=== PATIENT | male | born 1970 | race Caucasian/White ===

== ENCOUNTER 2021-06-04 18:55 | Inpatient (IN) | payer MEDICAID ==
[~2021-06-04] VITALS: Ht 172.7 cm; Wt 83.0 kg
[2021-06-04 19:00] VITALS: BP 120/82
[2021-06-04 20:00] VITALS: BP 120/82
[2021-06-04] MEDS ORDERED: NON FORMULARY PATIENT HOME MED XX SCH (21:00)
[2021-06-04] MEDS ORDERED: ENOXAPARIN 40MG/0.4ML SYR SUBCUT SCH (21:00)
[2021-06-04] MEDS ORDERED: DEXTROSE 50% WATER 50ML SYRINGE IV PRN (21:30)
[2021-06-04] MEDS ORDERED: SENNOSIDES/DOCUSATE SOD 8.6/50MG TABLET PO PRN (21:30)
[2021-06-04] MEDS ORDERED: ONDANSETRON HCL 4MG TABLET PO PRN (22:00)
[2021-06-04] MEDS ORDERED: SODIUM CHLORIDE 0.45% 1,000 ML IV SCH (22:00)
[2021-06-04] MEDS ORDERED: NALOXONE HCL 0.4MG/ML VIAL IV PRN (22:15)
[2021-06-04] MEDS ORDERED: SODIUM CHLORIDE 0.9% INJ 3ML FLUSH IVF PRN (23:00)
[2021-06-04] MEDS: ASCORBIC ACID 500 MG TABLET PEG SCH (23:53)
[2021-06-04] MEDS: GUAIFENESIN 200MG/10ML SUGAR FREE UDC PO SCH (23:53)
[2021-06-04] MEDS: ACETAMINOPHEN 325MG TABLET PO PRN (23:57)
[2021-06-05] MEDS: INSULIN GLARGINE UD 100 UNITS/ML SYR SUBCUT SCH ×3 (00:05→21:12)
[2021-06-05] MEDS ORDERED: SODIUM CHLORIDE 0.9% INJ 3ML FLUSH IVF ONE (06:00)
[2021-06-05] MEDS: GUAIFENESIN 200MG/10ML SUGAR FREE UDC PO SCH ×3 (06:00→21:05)
[2021-06-05] MEDS: HYDRALAZINE HCL 25MG TABLET PO SCH ×5 (06:00→23:03)
[2021-06-05] MEDS: INSULIN LISPRO 100 UNITS/ML SUBCUT SCH ×7 (06:28→21:11)
[2021-06-05] MEDS: BLOOD SUGAR DIAGNOSTIC STRIP TEST SCH ×4 (06:28→21:01)
[2021-06-05] MEDS: PANTOPRAZOLE 40MG DR TABLET PO SCH (06:29)
[2021-06-05] MEDS: OXYCODONE HCL 5MG TABLET PO PRN ×2 (06:30→09:58)
[2021-06-05 08:23] VITALS: BP 139/84
[2021-06-05 08:44] LABS: PROTHROMBIN TIME 11.1 sec (9.6-11.0)
[2021-06-05 08:50] LABS: CHLORIDE 110 mEq/L (98-107)
[2021-06-05 08:54] LABS: BASOPHILS % 0.7 % (0.0-2.0); EOSINOPHILS % 3.5 % (0.0-5.0); HEMATOCRIT. 34.7 % (42.0-52.0); HEMOGLOBIN. 11.3 g/dL (14.0-18.0); LYMPHOCYTES % 27.6 % (20.0-50.0); MEAN CORPUSCULAR HEMOGLOBIN 28.2 pg (28.0-32.0); MEAN CORPUSCULAR VOLUME 86.8 fL (80.0-94.0); MONOCYTES % 11.2 % (2.0-8.0); PLATELET 347 x1000/uL (130-400); RED CELL DISTRIBUTION WIDTH 14.7 % (11.6-14.6)
[2021-06-05] MEDS: POLYETHYLENE GLYCOL 3350 (17GM) 1 DOSE PACK PO SCH (09:00)
[2021-06-05] MEDS ORDERED: CHOLECALCIFEROL (D3) 1000 UNIT TABLET PO SCH ×2 (09:00)
[2021-06-05] MEDS: ASCORBIC ACID 500 MG TABLET PEG SCH ×2 (09:57→21:05)
[2021-06-05] MEDS: LINAGLIPTIN 5MG TABLET PO SCH (09:57)
[2021-06-05] MEDS: MULTIVITAMINS,THER W-MINERALS TABLET PO SCH (09:57)
[2021-06-05] MEDS: QUETIAPINE FUMARATE 25MG TABLET PO SCH (09:57)
[2021-06-05] MEDS: TAMSULOSIN HCL 0.4MG SR CAPSULE PO SCH (09:58)
[2021-06-05] MEDS: ENOXAPARIN 100MG/ML SYR SUBCUT SCH ×2 (09:58→21:05)
[2021-06-05] MEDS: METFORMIN HCL 500MG TABLET PO SCH ×2 (10:48→17:43)
[2021-06-05] MEDS ORDERED: DEXTROSE 50% WATER 50ML SYRINGE IV PRN (19:15)
[2021-06-05 20:00] VITALS: BP 122/83
[2021-06-05] MEDS ORDERED: BLOOD SUGAR DIAGNOSTIC STRIP TEST SCH (21:00)
[2021-06-05] MEDS: IPRATROPIUM/ALBUTEROL 0.5-3(2.5)MG/3ML NEB HHN SCH (21:14)
[2021-06-05] MEDS: ZOLPIDEM TARTRATE 5MG TABLET PO PRN (23:03)
[2021-06-06] MEDS: IPRATROPIUM/ALBUTEROL 0.5-3(2.5)MG/3ML NEB HHN SCH ×7 (01:20→23:58)
[2021-06-06] MEDS: GUAIFENESIN 200MG/10ML SUGAR FREE UDC PO SCH ×3 (06:00→21:18)
[2021-06-06] MEDS: PANTOPRAZOLE 40MG DR TABLET PO SCH (06:13)
[2021-06-06] MEDS: HYDRALAZINE HCL 25MG TABLET PO SCH ×4 (06:13→23:07)
[2021-06-06] MEDS: BLOOD SUGAR DIAGNOSTIC STRIP TEST SCH ×4 (06:16→21:14)
[2021-06-06] MEDS: INSULIN LISPRO 100 UNITS/ML SUBCUT SCH ×7 (06:17→21:00)
[2021-06-06 08:12] VITALS: BP 119/71
[2021-06-06] MEDS: MULTIVITAMINS,THER W-MINERALS TABLET PO SCH (08:44)
[2021-06-06] MEDS: ASCORBIC ACID 500 MG TABLET PEG SCH ×2 (08:44→20:23)
[2021-06-06] MEDS: QUETIAPINE FUMARATE 25MG TABLET PO SCH (08:44)
[2021-06-06] MEDS: TAMSULOSIN HCL 0.4MG SR CAPSULE PO SCH (08:44)
[2021-06-06] MEDS: METFORMIN HCL 500MG TABLET PO SCH ×2 (08:45→16:50)
[2021-06-06] MEDS: POLYETHYLENE GLYCOL 3350 (17GM) 1 DOSE PACK PO SCH (08:45)
[2021-06-06] MEDS: LINAGLIPTIN 5MG TABLET PO SCH (08:45)
[2021-06-06] MEDS ORDERED: ERGOCALCIFEROL 50000UNITS CAPSULE PO SCH (09:00)
[2021-06-06] MEDS: OXYCODONE HCL 5MG TABLET PO PRN ×2 (10:45→20:23)
[2021-06-06] MEDS: ENOXAPARIN 100MG/ML SYR SUBCUT SCH ×2 (10:47→20:23)
[2021-06-06] MEDS: INSULIN GLARGINE UD 100 UNITS/ML SYR SUBCUT SCH ×2 (10:48→21:20)
[2021-06-06 20:00] VITALS: BP 122/73
[2021-06-07] MEDS: ACETAMINOPHEN 325MG TABLET PO PRN (00:03)
[2021-06-07] MEDS: IPRATROPIUM/ALBUTEROL 0.5-3(2.5)MG/3ML NEB HHN SCH ×5 (04:00→20:40)
[2021-06-07] MEDS: GUAIFENESIN 200MG/10ML SUGAR FREE UDC PO SCH ×3 (06:00→21:10)
[2021-06-07] MEDS: HYDRALAZINE HCL 25MG TABLET PO SCH ×4 (06:00→23:16)
[2021-06-07] MEDS: OXYCODONE HCL 5MG TABLET PO PRN ×2 (06:18→13:46)
[2021-06-07] MEDS: PANTOPRAZOLE 40MG DR TABLET PO SCH (06:18)
[2021-06-07] MEDS: BLOOD SUGAR DIAGNOSTIC STRIP TEST SCH ×4 (06:23→21:09)
[2021-06-07] MEDS: INSULIN LISPRO 100 UNITS/ML SUBCUT SCH ×7 (06:24→21:00)
[2021-06-07 08:00] VITALS: BP 110/74
[2021-06-07] MEDS: QUETIAPINE FUMARATE 25MG TABLET PO SCH (08:53)
[2021-06-07] MEDS: ASCORBIC ACID 500 MG TABLET PEG SCH ×2 (08:53→21:11)
[2021-06-07] MEDS: LINAGLIPTIN 5MG TABLET PO SCH (08:53)
[2021-06-07] MEDS: METFORMIN HCL 500MG TABLET PO SCH ×2 (08:53→17:20)
[2021-06-07] MEDS: MULTIVITAMINS,THER W-MINERALS TABLET PO SCH (08:53)
[2021-06-07] MEDS: TAMSULOSIN HCL 0.4MG SR CAPSULE PO SCH (08:54)
[2021-06-07] MEDS: ENOXAPARIN 100MG/ML SYR SUBCUT SCH ×2 (08:54→21:11)
[2021-06-07] MEDS: POLYETHYLENE GLYCOL 3350 (17GM) 1 DOSE PACK PO SCH (09:00)
[2021-06-07] MEDS: INSULIN GLARGINE UD 100 UNITS/ML SYR SUBCUT SCH ×2 (09:04→21:10)
[2021-06-07 20:00] VITALS: BP 119/75
[2021-06-08] MEDS: HYDRALAZINE HCL 25MG TABLET PO SCH ×3 (06:13→17:58)
[2021-06-08] MEDS: FAMOTIDINE 20MG TABLET PO SCH ×2 (06:14→17:58)
[2021-06-08] MEDS: GUAIFENESIN 200MG/10ML SUGAR FREE UDC PO SCH ×3 (06:14→21:01)
[2021-06-08] MEDS: BLOOD SUGAR DIAGNOSTIC STRIP TEST SCH ×4 (06:22→20:37)
[2021-06-08] MEDS: INSULIN LISPRO 100 UNITS/ML SUBCUT SCH ×8 (06:23→20:37)
[2021-06-08 08:00] VITALS: BP 127/81
[2021-06-08] MEDS: TAMSULOSIN HCL 0.4MG SR CAPSULE PO SCH (09:28)
[2021-06-08] MEDS: QUETIAPINE FUMARATE 25MG TABLET PO SCH (09:28)
[2021-06-08] MEDS: LINAGLIPTIN 5MG TABLET PO SCH (09:28)
[2021-06-08] MEDS: MULTIVITAMINS,THER W-MINERALS TABLET PO SCH (09:28)
[2021-06-08] MEDS: METFORMIN HCL 500MG TABLET PO SCH ×2 (09:28→17:58)
[2021-06-08] MEDS: POLYETHYLENE GLYCOL 3350 (17GM) 1 DOSE PACK PO SCH (09:29)
[2021-06-08] MEDS: ENOXAPARIN 100MG/ML SYR SUBCUT SCH ×2 (09:29→20:38)
[2021-06-08] MEDS: INSULIN GLARGINE UD 100 UNITS/ML SYR SUBCUT SCH ×2 (09:33→21:04)
[2021-06-08] MEDS: OXYCODONE HCL 5MG TABLET PO PRN (11:56)
[2021-06-08] MEDS: ASCORBIC ACID 500 MG TABLET PEG SCH ×2 (11:56→20:37)
[2021-06-08 17:45] VITALS: BP 121/85
[2021-06-08 20:00] VITALS: BP 106/65
[2021-06-08] MEDS: ZOLPIDEM TARTRATE 5MG TABLET PO PRN (20:37)
[2021-06-09] MEDS: HYDRALAZINE HCL 25MG TABLET PO SCH ×4 (00:38→17:27)
[2021-06-09] MEDS: FAMOTIDINE 20MG TABLET PO SCH ×2 (06:01→17:27)
[2021-06-09] MEDS: BLOOD SUGAR DIAGNOSTIC STRIP TEST SCH ×4 (06:01→21:47)
[2021-06-09] MEDS: GUAIFENESIN 200MG/10ML SUGAR FREE UDC PO SCH ×3 (06:02→21:49)
[2021-06-09] MEDS: INSULIN LISPRO 100 UNITS/ML SUBCUT SCH ×7 (06:41→21:00)
[2021-06-09] MEDS: IPRATROPIUM/ALBUTEROL 0.5-3(2.5)MG/3ML NEB HHN SCH ×3 (07:19→15:54)
[2021-06-09 08:00] VITALS: BP 132/87
[2021-06-09] MEDS: POLYETHYLENE GLYCOL 3350 (17GM) 1 DOSE PACK PO SCH (09:18)
[2021-06-09] MEDS: ASCORBIC ACID 500 MG TABLET PEG SCH ×2 (09:18→21:48)
[2021-06-09] MEDS: TAMSULOSIN HCL 0.4MG SR CAPSULE PO SCH (09:18)
[2021-06-09] MEDS: LINAGLIPTIN 5MG TABLET PO SCH (09:18)
[2021-06-09] MEDS: QUETIAPINE FUMARATE 25MG TABLET PO SCH (09:18)
[2021-06-09] MEDS: METFORMIN HCL 500MG TABLET PO SCH ×2 (09:18→17:26)
[2021-06-09] MEDS: ENOXAPARIN 100MG/ML SYR SUBCUT SCH ×2 (09:18→21:48)
[2021-06-09] MEDS: MULTIVITAMINS,THER W-MINERALS TABLET PO SCH (09:18)
[2021-06-09] MEDS: INSULIN GLARGINE UD 100 UNITS/ML SYR SUBCUT SCH ×2 (09:26→21:53)
[2021-06-09 12:00] VITALS: BP 128/90
[2021-06-09 18:00] VITALS: BP 122/85
[2021-06-09] MEDS: OXYCODONE HCL 5MG TABLET PO PRN (18:16)
[2021-06-09 20:00] VITALS: BP 125/82
[2021-06-09] MEDS: ZOLPIDEM TARTRATE 5MG TABLET PO PRN (21:48)
[2021-06-10] MEDS: GUAIFENESIN 200MG/10ML SUGAR FREE UDC PO SCH ×3 (05:40→21:59)
[2021-06-10] MEDS: BLOOD SUGAR DIAGNOSTIC STRIP TEST SCH ×4 (05:40→21:58)
[2021-06-10] MEDS: HYDRALAZINE HCL 25MG TABLET PO SCH ×5 (05:41→22:07)
[2021-06-10] MEDS: FAMOTIDINE 20MG TABLET PO SCH ×2 (06:17→17:59)
[2021-06-10] MEDS: IPRATROPIUM/ALBUTEROL 0.5-3(2.5)MG/3ML NEB HHN SCH ×3 (08:00→16:40)
[2021-06-10] MEDS: INSULIN LISPRO 100 UNITS/ML SUBCUT SCH ×7 (08:53→21:00)
[2021-06-10] MEDS: METFORMIN HCL 500MG TABLET PO SCH ×2 (08:54→17:59)
[2021-06-10] MEDS: ASCORBIC ACID 500 MG TABLET PEG SCH ×2 (08:54→22:06)
[2021-06-10] MEDS: ENOXAPARIN 100MG/ML SYR SUBCUT SCH (08:54)
[2021-06-10] MEDS: QUETIAPINE FUMARATE 25MG TABLET PO SCH (08:54)
[2021-06-10] MEDS: POLYETHYLENE GLYCOL 3350 (17GM) 1 DOSE PACK PO SCH (08:54)
[2021-06-10] MEDS: LINAGLIPTIN 5MG TABLET PO SCH (08:55)
[2021-06-10] MEDS: MULTIVITAMINS,THER W-MINERALS TABLET PO SCH (08:55)
[2021-06-10] MEDS: TAMSULOSIN HCL 0.4MG SR CAPSULE PO SCH (08:56)
[2021-06-10 09:05] VITALS: BP 111/71
[2021-06-10] MEDS: OXYCODONE HCL 5MG TABLET PO PRN ×2 (11:59→23:39)
[2021-06-10] MEDS: INSULIN GLARGINE UD 100 UNITS/ML SYR SUBCUT SCH ×2 (12:08→21:59)
[2021-06-10] MEDS: APIXABAN 5 MG TABLET PO SCH (17:59)
[2021-06-10 20:00] VITALS: BP 135/77
[2021-06-10] MEDS: ACETAMINOPHEN 325MG TABLET PO PRN (22:07)
[2021-06-11] MEDS: GUAIFENESIN 200MG/10ML SUGAR FREE UDC PO SCH ×3 (05:56→22:00)
[2021-06-11] MEDS: BLOOD SUGAR DIAGNOSTIC STRIP TEST SCH ×4 (05:56→21:00)
[2021-06-11] MEDS: FAMOTIDINE 20MG TABLET PO SCH ×2 (05:57→17:56)
[2021-06-11] MEDS: HYDRALAZINE HCL 25MG TABLET PO SCH ×4 (05:58→22:28)
[2021-06-11] MEDS: INSULIN LISPRO 100 UNITS/ML SUBCUT SCH ×8 (07:00→21:00)
[2021-06-11] MEDS: IPRATROPIUM/ALBUTEROL 0.5-3(2.5)MG/3ML NEB HHN SCH ×2 (08:00→11:30)
[2021-06-11 08:06] VITALS: BP 126/86
[2021-06-11] MEDS: ASCORBIC ACID 500 MG TABLET PEG SCH ×2 (08:28→22:28)
[2021-06-11] MEDS: POLYETHYLENE GLYCOL 3350 (17GM) 1 DOSE PACK PO SCH (08:28)
[2021-06-11] MEDS: LINAGLIPTIN 5MG TABLET PO SCH (08:28)
[2021-06-11] MEDS: APIXABAN 5 MG TABLET PO SCH ×2 (08:28→17:56)
[2021-06-11] MEDS: QUETIAPINE FUMARATE 25MG TABLET PO SCH (08:29)
[2021-06-11] MEDS: MULTIVITAMINS,THER W-MINERALS TABLET PO SCH (08:29)
[2021-06-11] MEDS: TAMSULOSIN HCL 0.4MG SR CAPSULE PO SCH (08:29)
[2021-06-11] MEDS: METFORMIN HCL 500MG TABLET PO SCH ×2 (08:29→17:56)
[2021-06-11] MEDS: INSULIN GLARGINE UD 100 UNITS/ML SYR SUBCUT SCH ×2 (10:34→22:00)
[2021-06-11] MEDS ORDERED: LIDOCAINE HCL/EPINEPHRINE 1%-EPI 1:100,000 10 ML VIAL INFIL NR (15:30)
[2021-06-11] MEDS ORDERED: LIDOCAINE HCL 2% JELLY 5ML TOP NR (15:30)
[2021-06-11] MEDS: OXYCODONE HCL 5MG TABLET PO PRN (17:56)
[2021-06-11 20:00] VITALS: BP 127/79
[2021-06-12] MEDS: GUAIFENESIN 200MG/10ML SUGAR FREE UDC PO SCH ×3 (06:00→22:00)
[2021-06-12] MEDS: BLOOD SUGAR DIAGNOSTIC STRIP TEST SCH ×4 (06:31→21:00)
[2021-06-12] MEDS: HYDRALAZINE HCL 25MG TABLET PO SCH ×3 (06:33→18:22)
[2021-06-12] MEDS: FAMOTIDINE 20MG TABLET PO SCH ×2 (06:33→18:22)
[2021-06-12] MEDS: OXYCODONE HCL 5MG TABLET PO PRN ×3 (06:33→21:23)
[2021-06-12] MEDS: INSULIN LISPRO 100 UNITS/ML SUBCUT SCH ×7 (06:34→21:00)
[2021-06-12 08:07] VITALS: BP 126/93
[2021-06-12] MEDS: METFORMIN HCL 500MG TABLET PO SCH ×2 (10:28→18:21)
[2021-06-12] MEDS: APIXABAN 5 MG TABLET PO SCH ×2 (10:28→18:21)
[2021-06-12] MEDS: ASCORBIC ACID 500 MG TABLET PEG SCH ×2 (10:28→21:00)
[2021-06-12] MEDS: MULTIVITAMINS,THER W-MINERALS TABLET PO SCH (10:33)
[2021-06-12] MEDS: LINAGLIPTIN 5MG TABLET PO SCH (10:33)
[2021-06-12] MEDS: TAMSULOSIN HCL 0.4MG SR CAPSULE PO SCH (10:33)
[2021-06-12] MEDS: QUETIAPINE FUMARATE 25MG TABLET PO SCH (10:33)
[2021-06-12] MEDS: INSULIN GLARGINE UD 100 UNITS/ML SYR SUBCUT SCH ×2 (10:39→22:00)
[2021-06-12] MEDS: POLYETHYLENE GLYCOL 3350 (17GM) 1 DOSE PACK PO SCH (18:22)
[2021-06-12 20:00] VITALS: BP 127/71
[2021-06-12] MEDS: IPRATROPIUM/ALBUTEROL 0.5-3(2.5)MG/3ML NEB HHN SCH (22:04)
[2021-06-13] MEDS: IPRATROPIUM/ALBUTEROL 0.5-3(2.5)MG/3ML NEB HHN SCH ×2 (05:52→16:23)
[2021-06-13] MEDS: GUAIFENESIN 200MG/10ML SUGAR FREE UDC PO SCH ×3 (06:07→21:48)
[2021-06-13] MEDS: HYDRALAZINE HCL 25MG TABLET PO SCH ×4 (06:07→17:13)
[2021-06-13] MEDS: FAMOTIDINE 20MG TABLET PO SCH ×2 (06:08→17:14)
[2021-06-13] MEDS: OXYCODONE HCL 5MG TABLET PO PRN (06:20)
[2021-06-13 07:00] LABS: CHLORIDE 104 mEq/L (98-107)
[2021-06-13] MEDS: INSULIN LISPRO 100 UNITS/ML SUBCUT SCH ×7 (07:00→21:00)
[2021-06-13 07:01] LABS: HEMATOCRIT 35.7 % (42.0-52.0); HEMOGLOBIN 11.7 g/dL (14.0-18.0); MEAN CORPUSCULAR HEMOGLOBIN 27.7 pg (28.0-32.0); PLATELET 322 x1000/uL (130-400); RED BLOOD CELL COUNT 4.21 mill/uL (4.7-6.1); RED CELL DISTRIBUTION WIDTH 14.2 % (11.6-14.6)
[2021-06-13] MEDS: BLOOD SUGAR DIAGNOSTIC STRIP TEST SCH ×4 (07:29→21:48)
[2021-06-13 08:00] VITALS: BP 107/65
[2021-06-13] MEDS: ASCORBIC ACID 500 MG TABLET PEG SCH ×2 (08:25→21:47)
[2021-06-13] MEDS: MULTIVITAMINS,THER W-MINERALS TABLET PO SCH (08:25)
[2021-06-13] MEDS: METFORMIN HCL 500MG TABLET PO SCH ×2 (08:25→17:14)
[2021-06-13] MEDS: TAMSULOSIN HCL 0.4MG SR CAPSULE PO SCH (08:26)
[2021-06-13] MEDS: POLYETHYLENE GLYCOL 3350 (17GM) 1 DOSE PACK PO SCH (08:26)
[2021-06-13] MEDS: QUETIAPINE FUMARATE 25MG TABLET PO SCH (08:26)
[2021-06-13] MEDS: LINAGLIPTIN 5MG TABLET PO SCH (08:26)
[2021-06-13] MEDS: APIXABAN 5 MG TABLET PO SCH ×2 (08:26→17:14)
[2021-06-13] MEDS: INSULIN GLARGINE UD 100 UNITS/ML SYR SUBCUT SCH ×2 (11:15→21:51)
[2021-06-13] MEDS ORDERED: ZOLPIDEM TARTRATE 5MG TABLET PO PRN (13:15)
[2021-06-13] MEDS ORDERED: NON FORMULARY PATIENT HOME MED TOP SCH (14:00)
[2021-06-13] MEDS: LACTULOSE 20G/30ML UDC PO SCH ×2 (17:13→21:00)
[2021-06-13] MEDS: GABAPENTIN 100MG CAPSULE PO SCH ×2 (17:14→21:47)
[2021-06-13] MEDS ORDERED: METF-414 PO (17:47)
[2021-06-13 20:00] VITALS: BP 99/65
[2021-06-13] MEDS: SULFAMETHOXAZOLE/TRIMETHOPRIM 400/80MG TAB PO SCH (21:48)
[2021-06-14] MEDS: BLOOD SUGAR DIAGNOSTIC STRIP TEST SCH ×4 (06:05→20:36)
[2021-06-14] MEDS: HYDRALAZINE HCL 25MG TABLET PO SCH ×4 (06:05→17:24)
[2021-06-14] MEDS: FAMOTIDINE 20MG TABLET PO SCH ×2 (06:05→17:24)
[2021-06-14] MEDS: GABAPENTIN 100MG CAPSULE PO SCH ×3 (06:05→20:38)
[2021-06-14] MEDS: INSULIN LISPRO 100 UNITS/ML SUBCUT SCH ×7 (06:17→20:38)
[2021-06-14 08:00] VITALS: BP 110/70
[2021-06-14] MEDS: IPRATROPIUM/ALBUTEROL 0.5-3(2.5)MG/3ML NEB HHN SCH ×3 (08:00→16:00)
[2021-06-14] MEDS ORDERED: LIDOCAINE HCL/EPINEPHRINE 1%-EPI 1:100,000 20 ML VIAL INFIL NR (09:00)
[2021-06-14] MEDS: MULTIVITAMINS,THER W-MINERALS TABLET PO SCH (09:08)
[2021-06-14] MEDS: ASCORBIC ACID 500 MG TABLET PEG SCH ×2 (09:08→20:38)
[2021-06-14] MEDS: QUETIAPINE FUMARATE 25MG TABLET PO SCH (09:08)
[2021-06-14] MEDS: METFORMIN HCL 500MG TABLET PO SCH ×2 (09:08→17:25)
[2021-06-14] MEDS: LINAGLIPTIN 5MG TABLET PO SCH (09:09)
[2021-06-14] MEDS: POLYETHYLENE GLYCOL 3350 (17GM) 1 DOSE PACK PO SCH (09:09)
[2021-06-14] MEDS: SULFAMETHOXAZOLE/TRIMETHOPRIM 400/80MG TAB PO SCH ×2 (09:09→20:38)
[2021-06-14] MEDS: APIXABAN 5 MG TABLET PO SCH ×2 (09:09→17:24)
[2021-06-14] MEDS: TAMSULOSIN HCL 0.4MG SR CAPSULE PO SCH (09:11)
[2021-06-14] MEDS: INSULIN GLARGINE UD 100 UNITS/ML SYR SUBCUT SCH ×2 (12:03→21:53)
[2021-06-14] MEDS: ACETAMINOPHEN 325MG TABLET PO PRN (13:54)
[2021-06-14] MEDS ORDERED: SANTYL 250 UNIT/GM TOP SCH (15:45)
[2021-06-14 20:00] VITALS: BP 113/65
[2021-06-15] VITALS: BP 109/64
[2021-06-15] MEDS: OXYCODONE HCL 5MG TABLET PO PRN (02:22)
[2021-06-15] MEDS: HYDRALAZINE HCL 25MG TABLET PO SCH ×5 (05:58→23:13)
[2021-06-15] MEDS: FAMOTIDINE 20MG TABLET PO SCH ×2 (05:58→17:54)
[2021-06-15] MEDS: GABAPENTIN 100MG CAPSULE PO SCH ×3 (05:58→21:18)
[2021-06-15 06:00] VITALS: BP 135/88
[2021-06-15] MEDS: BLOOD SUGAR DIAGNOSTIC STRIP TEST SCH ×4 (06:00→21:11)
[2021-06-15] MEDS: INSULIN LISPRO 100 UNITS/ML SUBCUT SCH ×7 (06:06→21:00)
[2021-06-15] MEDS: IPRATROPIUM/ALBUTEROL 0.5-3(2.5)MG/3ML NEB HHN SCH ×4 (07:30→21:11)
[2021-06-15 08:30] VITALS: BP 132/85
[2021-06-15] MEDS: POLYETHYLENE GLYCOL 3350 (17GM) 1 DOSE PACK PO SCH (09:00)
[2021-06-15] MEDS: QUETIAPINE FUMARATE 25MG TABLET PO SCH ×2 (09:00→20:57)
[2021-06-15] MEDS: LINAGLIPTIN 5MG TABLET PO SCH (09:33)
[2021-06-15] MEDS: SULFAMETHOXAZOLE/TRIMETHOPRIM 400/80MG TAB PO SCH ×2 (09:33→20:57)
[2021-06-15] MEDS: ASCORBIC ACID 500 MG TABLET PEG SCH ×2 (09:33→20:58)
[2021-06-15] MEDS: APIXABAN 5 MG TABLET PO SCH ×2 (09:33→17:54)
[2021-06-15] MEDS: TAMSULOSIN HCL 0.4MG SR CAPSULE PO SCH (09:34)
[2021-06-15] MEDS: METFORMIN HCL 500MG TABLET PO SCH ×2 (09:34→17:54)
[2021-06-15] MEDS: MULTIVITAMINS,THER W-MINERALS TABLET PO SCH (09:34)
[2021-06-15] MEDS: INSULIN GLARGINE UD 100 UNITS/ML SYR SUBCUT SCH ×2 (11:57→21:18)
[2021-06-15] MEDS: SANTYL 250 UNIT/GM TOP SCH (11:57)
[2021-06-15] MEDS: ACETAMINOPHEN 325MG TABLET PO PRN (17:54)
[2021-06-15] MEDS ORDERED: OXYCODONE HCL 5MG TABLET PO PRN (19:30)
[2021-06-15 20:00] VITALS: BP 105/58
[2021-06-16] MEDS: IPRATROPIUM/ALBUTEROL 0.5-3(2.5)MG/3ML NEB HHN SCH ×5 (04:00→16:00)
[2021-06-16] MEDS: GABAPENTIN 100MG CAPSULE PO SCH ×3 (06:17→21:10)
[2021-06-16] MEDS: HYDRALAZINE HCL 25MG TABLET PO SCH ×3 (06:17→17:18)
[2021-06-16] MEDS: FAMOTIDINE 20MG TABLET PO SCH ×2 (06:17→17:09)
[2021-06-16] MEDS: INSULIN LISPRO 100 UNITS/ML SUBCUT SCH ×7 (06:45→21:00)
[2021-06-16] MEDS: BLOOD SUGAR DIAGNOSTIC STRIP TEST SCH ×4 (06:45→21:00)
[2021-06-16 08:00] VITALS: BP 112/64
[2021-06-16] MEDS: SULFAMETHOXAZOLE/TRIMETHOPRIM 400/80MG TAB PO SCH ×2 (08:38→21:10)
[2021-06-16] MEDS: LINAGLIPTIN 5MG TABLET PO SCH (08:38)
[2021-06-16] MEDS: ASCORBIC ACID 500 MG TABLET PEG SCH ×2 (08:39→21:10)
[2021-06-16] MEDS: METFORMIN HCL 500MG TABLET PO SCH ×2 (08:39→17:09)
[2021-06-16] MEDS: MULTIVITAMINS,THER W-MINERALS TABLET PO SCH (08:39)
[2021-06-16] MEDS: TAMSULOSIN HCL 0.4MG SR CAPSULE PO SCH (08:39)
[2021-06-16] MEDS: APIXABAN 5 MG TABLET PO SCH ×2 (08:39→17:10)
[2021-06-16] MEDS: POLYETHYLENE GLYCOL 3350 (17GM) 1 DOSE PACK PO SCH (08:39)
[2021-06-16] MEDS: INSULIN GLARGINE UD 100 UNITS/ML SYR SUBCUT SCH ×2 (10:58→22:00)
[2021-06-16] MEDS: SANTYL 250 UNIT/GM TOP SCH (12:28)
[2021-06-16 20:00] VITALS: BP 106/67
[2021-06-16] MEDS: QUETIAPINE FUMARATE 25MG TABLET PO SCH ×2 (21:10→21:35)
[2021-06-17] MEDS: GABAPENTIN 100MG CAPSULE PO SCH ×3 (06:00→21:15)
[2021-06-17] MEDS: HYDRALAZINE HCL 25MG TABLET PO SCH ×5 (06:00→23:07)
[2021-06-17] MEDS: FAMOTIDINE 20MG TABLET PO SCH ×2 (06:00→17:49)
[2021-06-17] MEDS: BLOOD SUGAR DIAGNOSTIC STRIP TEST SCH ×4 (06:04→21:30)
[2021-06-17 06:34] LABS: BASOPHILS % 1.4 % (0.0-2.0); EOSINOPHILS % 2.2 % (0.0-5.0); HEMOGLOBIN. 11.8 g/dL (14.0-18.0); LYMPHOCYTES % 28.8 % (20.0-50.0); MEAN CORPUSCULAR VOLUME 85.3 fL (80.0-94.0); MEAN PLATELET VOLUME 9.6 fl (7.4-10.4); MONOCYTES % 10.9 % (2.0-8.0); NEUTROPHILS % 56.7 % (40.0-76.0); PLATELET 268 x1000/uL (130-400); RED BLOOD CELL COUNT 4.22 mill/uL (4.7-6.1); RED CELL DISTRIBUTION WIDTH 14.5 % (11.6-14.6)
[2021-06-17] MEDS: INSULIN LISPRO 100 UNITS/ML SUBCUT SCH ×7 (07:38→21:00)
[2021-06-17 08:00] VITALS: BP 114/74
[2021-06-17] MEDS: POLYETHYLENE GLYCOL 3350 (17GM) 1 DOSE PACK PO SCH (09:00)
[2021-06-17] MEDS: ASCORBIC ACID 500 MG TABLET PEG SCH ×2 (10:25→21:15)
[2021-06-17] MEDS: METFORMIN HCL 500MG TABLET PO SCH ×2 (10:26→17:48)
[2021-06-17] MEDS: SULFAMETHOXAZOLE/TRIMETHOPRIM 400/80MG TAB PO SCH ×2 (10:26→21:16)
[2021-06-17] MEDS: MULTIVITAMINS,THER W-MINERALS TABLET PO SCH (10:26)
[2021-06-17] MEDS: APIXABAN 5 MG TABLET PO SCH ×2 (10:26→17:48)
[2021-06-17] MEDS: TAMSULOSIN HCL 0.4MG SR CAPSULE PO SCH (10:26)
[2021-06-17] MEDS: LINAGLIPTIN 5MG TABLET PO SCH (10:26)
[2021-06-17] MEDS: INSULIN GLARGINE UD 100 UNITS/ML SYR SUBCUT SCH ×2 (10:29→21:31)
[2021-06-17 20:00] VITALS: BP 116/78
[2021-06-18] MEDS: FAMOTIDINE 20MG TABLET PO SCH ×2 (06:38→16:45)
[2021-06-18] MEDS: HYDRALAZINE HCL 25MG TABLET PO SCH ×3 (06:38→17:00)
[2021-06-18] MEDS: GABAPENTIN 100MG CAPSULE PO SCH ×2 (06:42→13:00)
[2021-06-18] MEDS: BLOOD SUGAR DIAGNOSTIC STRIP TEST SCH ×3 (06:43→16:45)
[2021-06-18 07:34] VITALS: BP 137/89
[2021-06-18] MEDS: METFORMIN HCL 500MG TABLET PO SCH ×2 (08:31→16:45)
[2021-06-18] MEDS: SULFAMETHOXAZOLE/TRIMETHOPRIM 400/80MG TAB PO SCH (08:32)
[2021-06-18] MEDS: APIXABAN 5 MG TABLET PO SCH ×2 (08:32→16:45)
[2021-06-18] MEDS: ASCORBIC ACID 500 MG TABLET PEG SCH (08:32)
[2021-06-18] MEDS: TAMSULOSIN HCL 0.4MG SR CAPSULE PO SCH (08:32)
[2021-06-18] MEDS: MULTIVITAMINS,THER W-MINERALS TABLET PO SCH (08:32)
[2021-06-18] MEDS: LINAGLIPTIN 5MG TABLET PO SCH (08:32)
[2021-06-18] MEDS: POLYETHYLENE GLYCOL 3350 (17GM) 1 DOSE PACK PO SCH (08:34)
[2021-06-18] MEDS: INSULIN LISPRO 100 UNITS/ML SUBCUT SCH ×6 (08:40→16:46)
[2021-06-18] MEDS: INSULIN GLARGINE UD 100 UNITS/ML SYR SUBCUT SCH (11:23)
[2021-06-18 11:27] VITALS: BP 133/88
== END 2021-06-18 18:00 | disposition home health service (06) | DRG 26 ==
PROVIDERS: ADMIT Psychiatry & Neurology Neurology; ATTEND Hospitalist
PROC: 4A10X4Z Monitoring of Central Nervous Electrical Activity, External Approach (ICD-10-PCS; principal; 2021-06-07)
PROC: 0KBN0ZZ Excision of Right Hip Muscle, Open Approach (ICD-10-PCS; 2021-06-10)
PROC: 0KBP0ZZ Excision of Left Hip Muscle, Open Approach (ICD-10-PCS; 2021-06-10)
PROC: 0KBN0ZZ Excision of Right Hip Muscle, Open Approach (ICD-10-PCS; 2021-06-12)
PROC: 0KBP0ZZ Excision of Left Hip Muscle, Open Approach (ICD-10-PCS; 2021-06-12)
PROC: 0KBN0ZZ Excision of Right Hip Muscle, Open Approach (ICD-10-PCS; 2021-06-14)
PROC: 0KBP0ZZ Excision of Left Hip Muscle, Open Approach (ICD-10-PCS; 2021-06-14)
DX: S06.5X9A Traumatic subdural hemorrhage with loss of consciousness of unspecified duration, initial encounter (principal); J96.00 Acute respiratory failure, unspecified whether with hypoxia or hypercapnia; G93.40 Encephalopathy, unspecified; L89.154 Pressure ulcer of sacral region, stage 4; N17.9 Acute kidney failure, unspecified; I82.413 Acute embolism and thrombosis of femoral vein, bilateral; E11.51 Type 2 diabetes mellitus with diabetic peripheral angiopathy without gangrene; S06.6X9A Traumatic subarachnoid hemorrhage with loss of consciousness of unspecified duration, initial encounter; S02.85XA Fracture of orbit, unspecified, initial encounter for closed fracture; R13.10 Dysphagia, unspecified; E11.9 Type 2 diabetes mellitus without complications; I10 Essential (primary) hypertension; Z82.49 Family history of ischemic heart disease and other diseases of the circulatory system; Z93.1 Gastrostomy status; I82.433 Acute embolism and thrombosis of popliteal vein, bilateral; S90.822A Blister (nonthermal), left foot, initial encounter; E11.65 Type 2 diabetes mellitus with hyperglycemia; S90.32XA Contusion of left foot, initial encounter; R26.89 Other abnormalities of gait and mobility; Z56.0 Unemployment, unspecified; Y04.0XXA Assault by unarmed brawl or fight, initial encounter; Y93.89 Activity, other specified; Y92.89 Other specified places as the place of occurrence of the external cause; Y99.8 Other external cause status
CPT/HCPCS: 36415; 80048; 82040; 82962; 83036; 84134; 85025; 85027; 87070; 87077; 87186; 92523; 92610; 93923; 93970; 94640; 95816; 97110; 97116; 97162; 97166; 97530; 97535; A6261; J1650; J1815; J3490; A4315